=== PATIENT | male | born 1950 | race Caucasian/White ===

== ENCOUNTER 2020-12-16 10:01 | Inpatient (IN) ==
[2020-12-16] MEDS ORDERED: Isovue-370 500 ML BOTTLE IVP ONE ×2 (10:59→15:22)
[2020-12-16] MEDS ORDERED: Morphine Sulfate 2 MG/ML SYRINGE IVP STA (11:30)
[2020-12-16] MEDS ORDERED: Ondansetron 4 MG/2 ML VIAL IVP STA (11:30)
[2020-12-16 11:33] LABS: Basophils # 0.1 K/mcL (0.0-0.2); Basophils % 0.4 %; Eosinophils # 0.1 K/mcL (0.0-0.6); Eosinophils % 0.3 %; Hematocrit 36.4 % (37.5-50.1); Hemoglobin 11.3 g/dL (12.9-16.9); Lymphocytes # 1.8 K/mcL (0.6-4.6); Lymphocytes % 8.9 %; Mean Corpuscular Hemoglobin 29.3 pg (28.0-33.3); Mean Corpuscular Volume 94.3 fL (83.0-100.0); Mean Platelet Volume 9.3 fL (9.4-12.4); Monocytes # 1.2 K/mcL (0.0-1.3); Monocytes % 5.8 %; Neutrophils # 16.4 K/mcL (1.6-8.9); Nucleated Red Blood Cells 0.1 /100 WBC (0); Platelet Count 162 K/mcL (140-400); Red Blood Count 3.86 M/mcL (4.19-5.50); Red Cell Distribution Width 17.1 % (11.5-14.5); Segmented Neutrophils % 81.6 %; White Blood Count 20.2 K/mcL (4.3-11.1)
[2020-12-16 11:52] LABS: Alanine Aminotransferase 150 Units/L (7-52); Albumin 3.7 g/dL (3.5-5.7); Albumin/Globulin Ratio 1.4 (1.1-2.2); Alkaline Phosphatase 805 Units/L (34-104); Amylase 37 Units/L (29-103); Aspartate Amino Transferase 219 Units/L (13-39); BUN/Creatinine Ratio 33 (6-26); Bilirubin,Indirect 2.4 mg/dL (0.0-1.0); Bilirubin,Total 6.4 mg/dL (0.3-1.0); Blood Urea Nitrogen 31 mg/dL (8-23); Calcium 11.7 mg/dL (8.6-10.3); Carbon Dioxide 26 mEq/L (23-29); Chloride 102 mEq/L (98-107); Globulin 2.6 g/dL (2.4-3.5); Glucose 77 mg/dL (70-105); Lipase 60 Units/L (11-82); Osmolality,Calculated 293 (280-300); Potassium 4.7 mEq/L (3.5-5.1); Sodium 139 mEq/L (136-145); Total Protein 6.3 g/dL (6.4-8.9); eGFR For African Americans > 60 (> 60); eGFR For Non-African Americans > 60 (> 60)
[2020-12-16 11:52] LABS: INR 1.2
[2020-12-16 11:55] LABS: Activated Partial Thrombo Time 24.5 Seconds (26.0-36.0)
[2020-12-16] MEDS ORDERED: cefTRIAXone 1,000 MG in Water for inj. (sterile) 10 ML IVP ONE (12:10)
[2020-12-16] MEDS ORDERED: MetroNIDAZOLE 500 MG/100 ML 500 MG/100 ML BAG IVPB ONE (12:10)
[2020-12-16 13:08] LABS: Bilirubin,Urine Small (Negative); Blood,Urine Negative (Negative); Clarity,Urine Turbid (Clear); Color,Urine Dark-Yellow (Yellow); Glucose,Urine (UA) Normal (Normal); Ketones,Urine Negative (Negative); Leukocyte Esterase,Urine Negative (Negative); Mucus,Urine Few per lpf (None-Few); Nitrite,Urine Negative (Negative); Protein,Urine Trace mg/dL (Neg-Trace); Specific Gravity,Urine 1.023 (1.010-1.025); Squamous Epithelial Cell,Urine Few per hpf (None-Few)
[2020-12-16] MEDS ORDERED: *HR* HYDROmorphone (PF) 1 MG/ML SYRINGE IVP STA (14:40)
[2020-12-16] MEDS ORDERED: Naloxone 0.4 MG/ML INJ IVP PRN (15:20)
[2020-12-16] MEDS ORDERED: Ondansetron 4 MG/2 ML VIAL IVP PRN (15:20)
[2020-12-16] MEDS ORDERED: Melatonin 3 MG TABLET PO PRN (15:20)
[2020-12-16] MEDS ORDERED: Zoledronic Acid (Zometa) 4 MG in 0.9 % Sodium Chloride 100 ML IV ONE (15:51)
[2020-12-16 16:09] LABS: Amphetamine Screen,Urine Negative ng/mL (Cutoff=1000); Barbiturate Screen,Urine Negative ng/mL (Cutoff=200); Benzodiazepines Screen,Urine Negative ng/mL (Cutoff=200); Cannabinoid Screen,Urine Negative ng/mL (Cutoff = 50); Cocaine Screen,Urine Negative ng/mL (Cutoff= 300); Opiate Screen,Urine Positive ng/mL (Cutoff=300); Phencyclidine Screen,Urine Negative ng/mL (Cutoff=25)
[2020-12-16 16:22] LABS: Prostate Specific Antigen 4.62 ng/mL (Less than 4.00)
[2020-12-16 16:28] LABS: Acetaminophen < 10 mcg/mL (10-20); Carcinoembryonic Antigen 10.8 ng/mL (Less than 5.0); Chol/HDL Ratio 8.1 (0-4.9); Cholesterol 154 mg/dL (< 200); Ethanol < 10 mg/dL (Less than 10); Gamma Glutamyl Transpeptidase > 1200 Units/L (7-64); HDL Cholesterol 19 mg/dL (40-59); LDL Cholesterol,Calculated 100 mg/dL (< 100); Salicylate < 2.5 mg/dL (15.0-30.0); Thyroid Stimulating Hormone 4.248 mcIU/mL (0.340-5.600); Triglycerides 174 mg/dL (< 150)
[2020-12-16 16:38] LABS: VBG Ionized Calcium 1.44 mmol/L (1.15-1.35)
[2020-12-16] MEDS ORDERED: Ipratropium/Albuterol Neb 3 ML IH PRN (16:45)
[2020-12-16] MEDS ORDERED: 0.9 % Sodium Chloride 1,000 ML IVC ONE (16:49)
[2020-12-16 17:12] LABS: Hepatitis B Surface Antigen Nonreactive (Nonreactive)
[2020-12-16 17:41] LABS: Hepatitis C Virus Antibody Nonreactive (Nonreactive)
[2020-12-16 17:44] LABS: Hepatitis A Antibody IgM Nonreactive (Nonreactive)
[2020-12-16 17:45] LABS: Hepatitis B Core IgM Nonreactive (Nonreactive)
[2020-12-16] MEDS: Gabapentin 400 MG CAPSULE PO SCH ×2 (18:05→20:36)
[2020-12-16] MEDS: Cefepime HCl 2,000 MG in 0.9 % Sodium Chloride Mini Bag 100 ML IVPB SCH (18:14)
[2020-12-16] MEDS: Budesonide/Formoterol 80/4.5 1 PUFF INH IH SCH (19:54)
[2020-12-16] MEDS: 0.9 % Sodium Chloride 1,000 ML IVC SCH (20:29)
[2020-12-16] MEDS: MetroNIDAZOLE 500 MG/100 ML 500 MG/100 ML BAG IVPB SCH (20:32)
[2020-12-16] MEDS: Lactobacillus 1 EACH CAP.SPRINK PO SCH (20:36)
[2020-12-16] MEDS: clonazePAM 0.5 MG TABLET PO SCH (20:37)
[2020-12-16] MEDS: Lactulose Oral Soln 20 GM/30 ML UDC PO SCH (20:37)
[2020-12-17] MEDS: MetroNIDAZOLE 500 MG/100 ML 500 MG/100 ML BAG IVPB SCH ×3 (00:03→21:22)
[2020-12-17] MEDS: Cefepime HCl 2,000 MG in 0.9 % Sodium Chloride Mini Bag 100 ML IVPB SCH ×3 (00:06→16:09)
[2020-12-17 00:26] LABS: Basophils # 0.1 K/mcL (0.0-0.2); Basophils % 0.5 %; Eosinophils % 0.2 %; Hematocrit 34.2 % (37.5-50.1); Hemoglobin 10.6 g/dL (12.9-16.9); Immature Granulocytes % 2.9 % (0-4); Lymphocytes # 2.7 K/mcL (0.6-4.6); Lymphocytes % 12.5 %; Mean Corpuscular Hemoglobin 29.6 pg (28.0-33.3); Mean Corpuscular Volume 95.5 fL (83.0-100.0); Mean Platelet Volume 8.9 fL (9.4-12.4); Monocytes # 1.5 K/mcL (0.0-1.3); Monocytes % 6.8 %; Neutrophils # 16.5 K/mcL (1.6-8.9); Nucleated Red Blood Cells 0.2 /100 WBC (0); Platelet Count 152 K/mcL (140-400); Red Blood Count 3.58 M/mcL (4.19-5.50); Red Cell Distribution Width 17.2 % (11.5-14.5); Segmented Neutrophils % 77.1 %; White Blood Count 21.4 K/mcL (4.3-11.1)
[2020-12-17 00:34] LABS: INR 1.2; Prothrombin Time 13.3 Seconds (9.4-12.1)
[2020-12-17 00:41] LABS: Alanine Aminotransferase 136 Units/L (7-52); Albumin 3.3 g/dL (3.5-5.7); Albumin/Globulin Ratio 1.3 (1.1-2.2); Alkaline Phosphatase 636 Units/L (34-104); Aspartate Amino Transferase 208 Units/L (13-39); BUN/Creatinine Ratio 31 (6-26); Bilirubin,Total 6.1 mg/dL (0.3-1.0); Blood Urea Nitrogen 30 mg/dL (8-23); Calcium 10.7 mg/dL (8.6-10.3); Carbon Dioxide 25 mEq/L (23-29); Chloride 104 mEq/L (98-107); Globulin 2.5 g/dL (2.4-3.5); Glucose 83 mg/dL (70-105); Magnesium 2.2 mg/dL (1.6-2.6); Osmolality,Calculated 291 (280-300); Phosphorous 3.6 mg/dL (2.7-4.5); Potassium 4.5 mEq/L (3.5-5.1); Sodium 138 mEq/L (136-145); Total Protein 5.8 g/dL (6.4-8.9); eGFR For African Americans > 60 (> 60); eGFR For Non-African Americans > 60 (> 60)
[2020-12-17 00:42] LABS: % Iron Saturation 53 % (20-55); Iron 98 mcg/dL (65-175); Transferrin 132 mg/dL (203-362)
[2020-12-17 01:04] LABS: Ferritin > 1500 ng/mL (20-250)
[2020-12-17 01:07] LABS: Folate 4.4 ng/mL (3.0-16.0)
[2020-12-17 02:35] LABS: VBG HCO3 24 mEq/L (21-27); VBG PCO2 40 mmHg (41-51); VBG PH 7.39 pH Units (7.32-7.42); VBG PO2 176 mmHg (25-50)
[2020-12-17] MEDS: 0.9 % Sodium Chloride 1,000 ML IVC SCH (05:26)
[2020-12-17] MEDS: Budesonide/Formoterol 80/4.5 1 PUFF INH IH SCH ×2 (08:13→21:59)
[2020-12-17] MEDS: Furosemide 20 MG TABLET PO SCH (09:22)
[2020-12-17] MEDS: Gabapentin 400 MG CAPSULE PO SCH ×4 (09:22→21:18)
[2020-12-17] MEDS: Lactulose Oral Soln 20 GM/30 ML UDC PO SCH ×2 (09:22→21:23)
[2020-12-17] MEDS: clonazePAM 0.5 MG TABLET PO SCH ×2 (09:22→21:19)
[2020-12-17] MEDS: Lactobacillus 1 EACH CAP.SPRINK PO SCH ×2 (09:22→21:19)
[2020-12-17] MEDS ORDERED: 0.9 % Sodium Chloride 500 ML ONE (10:16)
[2020-12-17] MEDS ORDERED: Ipratropium/Albuterol Neb 3 ML IH PRN (12:28)
[2020-12-17] MEDS ORDERED: *HR* LORazepam 2 MG/ML VIAL IVP ONE (15:00)
[2020-12-17] MEDS: Ipratropium/Albuterol Neb 3 ML IH SCH ×3 (15:25→21:59)
[2020-12-17] MEDS: Pantoprazole 40 MG VIAL IVP SCH (16:10)
[2020-12-17] MEDS: predniSONE 20 MG TABLET PO SCH (17:57)
[2020-12-17] MEDS: *HR* HYDROcodone/Acet 5/325 mg TABLET PO PRN (21:20)
[2020-12-18] MEDS: Cefepime HCl 2,000 MG in 0.9 % Sodium Chloride Mini Bag 100 ML IVPB SCH ×3 (01:10→15:57)
[2020-12-18 01:39] LABS: Basophils # 0.1 K/mcL (0.0-0.2); Basophils % 0.4 %; Eosinophils % 0.1 %; Hematocrit 30.5 % (37.5-50.1); Hemoglobin 9.4 g/dL (12.9-16.9); Immature Granulocytes % 4.5 % (0-4); Lymphocytes % 5.4 %; Mean Corpuscular HGB Conc 30.8 g/dL (31.6-35.5); Mean Corpuscular Hemoglobin 29.9 pg (28.0-33.3); Mean Corpuscular Volume 97.1 fL (83.0-100.0); Mean Platelet Volume 9.3 fL (9.4-12.4); Monocytes # 0.6 K/mcL (0.0-1.3); Monocytes % 2.9 %; Neutrophils # 16.7 K/mcL (1.6-8.9); Nucleated Red Blood Cells 0.1 /100 WBC (0); Platelet Count 119 K/mcL (140-400); Red Blood Count 3.14 M/mcL (4.19-5.50); Red Cell Distribution Width 17.3 % (11.5-14.5); Segmented Neutrophils % 86.7 %; White Blood Count 19.3 K/mcL (4.3-11.1)
[2020-12-18 01:49] LABS: INR 1.2; Prothrombin Time 13.7 Seconds (9.4-12.1)
[2020-12-18 02:03] LABS: Alanine Aminotransferase 115 Units/L (7-52); Albumin 3.1 g/dL (3.5-5.7); Albumin/Globulin Ratio 1.3 (1.1-2.2); Alkaline Phosphatase 516 Units/L (34-104); Aspartate Amino Transferase 188 Units/L (13-39); BUN/Creatinine Ratio 31 (6-26); Bilirubin,Total 6.7 mg/dL (0.3-1.0); Blood Urea Nitrogen 32 mg/dL (8-23); Calcium 10.2 mg/dL (8.6-10.3); Carbon Dioxide 19 mEq/L (23-29); Chloride 106 mEq/L (98-107); Globulin 2.3 g/dL (2.4-3.5); Glucose 125 mg/dL (70-105); Magnesium 2.2 mg/dL (1.6-2.6); Osmolality,Calculated 294 (280-300); Phosphorous 3.5 mg/dL (2.7-4.5); Potassium 4.4 mEq/L (3.5-5.1); Sodium 138 mEq/L (136-145); Total Protein 5.4 g/dL (6.4-8.9); eGFR For African Americans > 60 (> 60); eGFR For Non-African Americans > 60 (> 60)
[2020-12-18] MEDS: Ipratropium/Albuterol Neb 3 ML IH SCH ×4 (04:04→22:30)
[2020-12-18] MEDS: MetroNIDAZOLE 500 MG/100 ML 500 MG/100 ML BAG IVPB SCH ×3 (05:42→21:47)
[2020-12-18] MEDS: Pantoprazole 40 MG VIAL IVP SCH ×2 (05:43→16:57)
[2020-12-18] MEDS: *HR* HYDROcodone/Acet 5/325 mg TABLET PO PRN (07:38)
[2020-12-18] MEDS: Gabapentin 400 MG CAPSULE PO SCH ×4 (09:40→21:44)
[2020-12-18] MEDS: Lactulose Oral Soln 20 GM/30 ML UDC PO SCH ×2 (09:40→21:44)
[2020-12-18] MEDS: predniSONE 20 MG TABLET PO SCH (09:40)
[2020-12-18] MEDS: Multivit/Ca/Min/Fe/FA 1 TAB TABLET PO SCH (09:40)
[2020-12-18] MEDS: Furosemide 20 MG TABLET PO SCH (09:40)
[2020-12-18] MEDS: clonazePAM 0.5 MG TABLET PO SCH ×2 (09:40→21:44)
[2020-12-18] MEDS: Lactobacillus 1 EACH CAP.SPRINK PO SCH ×2 (09:40→21:44)
[2020-12-18] MEDS: Budesonide/Formoterol 80/4.5 1 PUFF INH IH SCH ×2 (09:55→22:32)
[2020-12-18] MEDS ORDERED: *HR* OxyCODONE Immed Rel 5 MG TABLET PO PRN (10:54)
[2020-12-19] MEDS: Ipratropium/Albuterol Neb 3 ML IH SCH ×2 (04:10→10:38)
[2020-12-19] MEDS: Pantoprazole 40 MG VIAL IVP SCH (06:22)
[2020-12-19 06:24] LABS: Hemoglobin 9.6 g/dL (12.9-16.9); Mean Corpuscular Volume 98.8 fL (83.0-100.0); Mean Platelet Volume 9.3 fL (9.4-12.4); Nucleated Red Blood Cells 0.1 /100 WBC (0); Platelet Count 140 K/mcL (140-400)
[2020-12-19 06:25] LABS: Hematocrit 32.4 % (37.5-50.1); Mean Corpuscular HGB Conc 29.6 g/dL (31.6-35.5); Mean Corpuscular Hemoglobin 29.3 pg (28.0-33.3); Red Blood Count 3.28 M/mcL (4.19-5.50); Red Cell Distribution Width 17.4 % (11.5-14.5); White Blood Count 28.5 K/mcL (4.3-11.1)
[2020-12-19 06:31] LABS: INR 1.2; Prothrombin Time 14.2 Seconds (9.4-12.1)
[2020-12-19 06:46] LABS: Alanine Aminotransferase 116 Units/L (7-52); Albumin 3.3 g/dL (3.5-5.7); Albumin/Globulin Ratio 1.4 (1.1-2.2); Alkaline Phosphatase 575 Units/L (34-104); Aspartate Amino Transferase 197 Units/L (13-39); BUN/Creatinine Ratio 33 (6-26); Blood Urea Nitrogen 33 mg/dL (8-23); Calcium 9.7 mg/dL (8.6-10.3); Carbon Dioxide 19 mEq/L (23-29); Chloride 105 mEq/L (98-107); Glucose 108 mg/dL (70-105); Magnesium 2.4 mg/dL (1.6-2.6); Osmolality,Calculated 296 (280-300); Phosphorous 2.2 mg/dL (2.7-4.5); Potassium 4.4 mEq/L (3.5-5.1); Sodium 139 mEq/L (136-145); Total Protein 5.6 g/dL (6.4-8.9); eGFR For African Americans > 60 (> 60); eGFR For Non-African Americans > 60 (> 60)
[2020-12-19 06:47] LABS: Globulin 2.3 g/dL (2.4-3.5)
[2020-12-19 07:11] LABS: Lymphocytes # 2.9 K/mcL (0.6-4.6); Monocytes # 1.1 K/mcL (0.0-1.3); Neutrophils # 24.5 K/mcL (1.6-8.9); Platelet Estimate Normal (Normal)
[2020-12-19] MEDS: Lactobacillus 1 EACH CAP.SPRINK PO SCH (08:53)
[2020-12-19] MEDS: Gabapentin 400 MG CAPSULE PO SCH (08:53)
[2020-12-19] MEDS: Lactulose Oral Soln 20 GM/30 ML UDC PO SCH (08:53)
[2020-12-19] MEDS: Multivit/Ca/Min/Fe/FA 1 TAB TABLET PO SCH (08:54)
[2020-12-19] MEDS: clonazePAM 0.5 MG TABLET PO SCH (08:54)
[2020-12-19] MEDS: Furosemide 20 MG TABLET PO SCH (08:54)
[2020-12-19] MEDS: predniSONE 20 MG TABLET PO SCH (08:55)
[2020-12-19] MEDS ORDERED: Spironolactone 12.5 MG TABLET PO SCH (09:00)
[2020-12-19] MEDS: Budesonide/Formoterol 80/4.5 1 PUFF INH IH SCH (10:38)
[2020-12-19 13:43] VITALS: BP 145/64
[2020-12-19 15:23] LABS: Vitamin D 25 Hydroxy 30 ng/mL (30-80)
== END 2020-12-19 13:45 | disposition home health service (06) | DRG 435 ==
LOC: EMEROOARM 10:01 → 3ANU 10:01 → SUATTDRO 14:25 → 3ANU 15:16
PROVIDERS: ADMIT Internal Medicine; ATTEND Internal Medicine
PROC: IRLIVER (2020-12-17 12:00)